=== PATIENT | male | born 1950 | race African-American/Black ===

== ENCOUNTER 2016-09-05 05:29 | Observation (INO) ==
[2016-09-05 07:05] LABS: Basophils % 0.2 % (0.0-0.8); Eosinophils # 0.1 10*3/uL (0.0-0.87); Eosinophils % 1.4 % (0.00-10.9); Hematocrit 37.9 VOL% (42.0-52.0); Hemoglobin 12.9 GM/DL (14.0-18.0); Immature Granulocytes % 0.5 %; Immature Granulocytes Absolute 0.02 #; Lymphocytes # 1.6 10*3/uL (1.4-4.0); Lymphocytes % 37.1 % (21.2-54.2); Mean Corpuscular Hemoglobin 35 PG (27-34); Mean Corpuscular Volume 103.3 FL (87-102); Mean Platelet Volume 9.4 FL (9.6-12.0); Monocytes # 0.4 10*3/uL (0.11-0.8); Monocytes % 9.3 % (1.7-12.7); Neutrophils # 2.3 10*3/uL (1.4-7.4); Neutrophils % 51.5 % (38.7-73.9); Platelet Count 150 T/CUMM (130-400); Red Blood Count 3.67 MC/CUMM (3.8-5.5); Red Cell Distribution Width 13.5 % (9.3-17.3); White Blood Count 4.4 T/CUMM (4-12)
[2016-09-05 07:15] LABS: INR 0.9; PT Patient Result 9.9 SECS; Partial Thromboplastin Time 24.1 SECS (0-40)
[2016-09-05 07:39] LABS: % Iron Saturation 53.1 % (18-50); Calcium 9.4 MG/DL (8.5-10.1); Ferritin 379.8 ng/ml (26-388); Osmolality,Calculated 282.3 MOS/KG (273-304); Potassium 4.2 MMOL/L (3.5-5.1)
--- NOTE | 2016-09-05 07:48 | Cardiology History & Physical ---
Assessment and Plan (1) Ventricular tachycardia Status: Acute Assessment and plan: 66y BM. Incessant slow VT, suggestive of LAFB origin. CAD, CMP susp ICM+TCMP, PAD, COPD, HTN, HLP. -We discussed risks/benefits of management options. We will proceed with VT ablation under general anesthesia. Informed consent obtained. -Mild macrocytic anemia, lower extremity neuropathic symptoms. Will check anemia studies Current Visit: Yes (2) CAD (coronary artery disease) Status: Chronic Current Visit: No (3) Cardiomyopathy, dilated Status: Chronic Current Visit: No (4) PVD (peripheral vascular disease) Status: Chronic Current Visit: No (5) Palpitations Status: Resolved Current Visit: No (6) Dyslipidemia Status: Chronic Current Visit: No History of Present Illness Chief complaint: Incessant VT, CMP History of present illness: Mr. Aram Birch is a 66 year old BM, followed by dr. Lacy. He was referred for EP evaluation. He had slow incessant VT/AIVR, which was minimally symptomatic. Stable morphology, RBBB/LPFB morphology. 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 PAD s/p LCIA occlusion, s/p fem-fem bypass. DVT/PE, s/p IVC filter, which was removed. LVEF was 35%, CHF NYHA II. He was initially referred for evaluation for ICD implant. Holter showed 33% VT burden. We discussed risks/benefits of management options. He ventricular tachyarrhythmia burden is significant and may have contributed to CMP, CHF. We will proceed with EPS, VT ablation, then reassess LVEF, ICD candidacy. Obtained prior records from multiple prior hospital where he was treated prior. The PAD is stable. The IVC filter was removed and no IVC occlusion was described on his recent CT. He is feeling fine. CHF symptoms stable around NYHA II. No syncope, CP. HTN, HLP. COPD, quit smoking 1 month ago. No recent fever. Coughs frequently. Home Medications Medication Instructions Recorded Confirmed Type Carvedilol [Coreg] 6.25 mg PO BID 06/20/16 09/05/16 History Cilostazol 50 mg PO BID 06/20/16 09/05/16 History Aspirin EC Tab 81 mg PO DAILY tablet 06/22/16 09/05/16 Rx Atorvastatin [Lipitor] 80 mg PO BEDTIME #30 tablet 06/22/16 09/05/16 Rx Amitriptyline HCl 10 mg PO DAILY 09/05/16 09/05/16 History Clopidogrel [Plavix] 75 mg PO DAILY 09/05/16 09/05/16 History Lisinopril 2.5 mg PO DAILY 09/05/16 09/05/16 History Pantoprazole Sodium 40 mg PO DAILY 09/05/16 09/05/16 History Allergies Allergy/AdvReac Type Severity Reaction Status Date / Time No Known Allergies Allergy Verified 06/21/16 06:17 12 point system: reviewed and no additional remarkable complaints except as stated Medical,Surgical,& Family Hx - Medical History Cardio: History of: CAD, Hypertension Neurology: No history of: Seizures Endocrine: History of: Dyslipidemia Respiratory: History of: COPD - Surgical History Cardiac Surgeries: Sugical HX of: Cardiac Catheterization - Family History Family History: Reports;: Family Hypertension, Family Stroke - Social History Smoking Status: Former smoker Frequency of Alcohol Use: Frequently Type of Drug Use: None Cardiology Physical Exam - Constitutional Vitals: Vital Signs Temp Pulse Resp BP Pulse Ox 98.0 F 65 18 115/76 98 09/05/16 07:16 09/05/16 07:16 09/05/16 07:16 09/05/16 07:16 09/05/16 07:16 Intake and Output 09/04/16 09/04/16 09/05/16 15:59 23:59 07:59 Other: Weight 51.719 kg Patient Weight 09/05/16 23:59 Weight 51.719 kg General appearance: under weight - Head Head exam: Present: normal inspection, normocephalic - Eye Eye exam: Absent: conjunctival injection Pupils: Absent: dilated - ENT ENT exam: Present: normal exam - Neck Neck exam: Present: normal inspection. Absent: thyromegaly - Respiratory Respiratory exam: Present: decreased breath sounds (on L side) - Cardiovascular Cardiovascular exam: Present: regular rate and rhythm, systolic murmur - GI/Abdominal GI/Abdominal exam: Present: normal bowel sounds - Extremities Exam Extremities exam: Present: normal inspection, normal capillary refill. Absent: edema - Back Exam Back exam: Present: normal inspection - Neurological Exam Neurological exam: Present: alert, oriented X3 - Psychiatric Psychiatric exam: Present: normal affect, normal mood - Skin Skin exam: Present: normal color, warm. Absent: cyanosis Result/EKG - Labs CBC & BMP: 09/05/16 06:50 09/05/16 06:50 Lab Results: I have reviewed the past 24 hour labs Labs: Laboratory Results - last 24 hr 09/05/16 09/05/16 09/05/16 06:50 06:50 06:50 WBC 4.4 RBC 3.67 L Hgb 12.9 L Hct 37.9 L MCV 103.3 H MCH 35 H MCHC 34.0 RDW 13.5 Plt Count 150 MPV 9.4 L Neut % (Auto) 51.5 Lymph % (Auto) 37.1 Moffat % (Auto) 9.3 Eos % (Auto) 1.4 Baso % (Auto) 0.2 Neut # (Auto) 2.3 Lymph # (Auto) 1.6 Moffat # (Auto) 0.4 Eos # (Auto) 0.1 Baso # (Auto) 0.0 Immature Gran % 0.5 Nucleated RBC % 0.0 Immature Gran # 0.02 Nucleated RBCs # 0.00 Absolute Retic 0.1 Percent Retic 1.8 H Retic Hgb Equivalent 38.9 H INR 0.9 PT Patient/Control Mix 9.9 Circ Anticoag PTT 24.1 Sodium 141 Potassium 4.2 Chloride 105 Carbon Dioxide 31 Anion Gap 9.2 BUN 21 H Creatinine 0.70 GFR Calculation 104 BUN/Creatinine Ratio 30.00 H Glucose 87 Calculated Osmolality 282.3 Calcium 9.4 Magnesium 2.0 Iron 154 TIBC 290 % Saturation 53.1 H Ferritin 379.8 - EKG EKG results: interpreted by me
[2016-09-05 07:53] LABS: Folate 9.4 NG/ML (5.4-24.0)
[2016-09-05] MEDS ORDERED: HEPARIN/NACL 0.9% 2 UNITS/ML 1,500 ML IV ONE (08:06)
[2016-09-05] MEDS ORDERED: LIDOCAINE 1% 20 ML VIAL ONE (08:07)
--- NOTE | 2016-09-05 08:29 | History and Physical Update ---
Sedation H&P Update - History and Physical H&P was reviewed, the patient examined and there: are no changes in the patients condition since last H&P was completed. - Dictation Physical: refer to H&P completed by admitting physician - Physical Exam Mental Status: alert and oriented Heart: regular rate and rhythm Lung: clear to auscultation Abdomen: within normal limits Vitals: within normal limits - Sedation Plan for Sedation: other (GA) Patient Consent: Procedure disscussed with patient and patinet has consented., Risks and benefits were discussed with patient,including infection,, bleeding, injury to surrounding structures, seizure, temporary nerve, Patient understands and accepts potential risks/benefits and agrees to ASA Class: IV Airway Assessment: Class II: Soft palate, uvula, fauces visible
[2016-09-05] MEDS ORDERED: HEPARIN 5,000 UNIT/1 ML VIAL ONE (08:54)
[2016-09-05 09:16] LABS: Apearance,Urine CLEAR (Clear); Bilirubin,Urine Negative (Negative); Blood, Urine Negative (Negative); Glucose,Urine (UA) Negative (Negative); Ketones,Urine Negative (Negative); Mucus,Urine Occasional /LPF (Occasional); Nitrite,Urine Negative (Negative); Protein,Urine Negative; Urine Color Straw (Yellow); Urine Specific Gravity 1.015 (1.001-1.035); Urine Urobilinogen < 2.0 EU/DL (0.2-1.0); WBC,Urine <1 /HPF (0-6)
[2016-09-05] MEDS ORDERED: ISOPROTERENOL 1 MG/5 ML VIAL IV ONE (09:36)
--- NOTE | 2016-09-05 10:25 | Anesthesia ---
Anesthesia Procedures - Arterial Line Consent obtained arterial line: verbal consent Time out performed arterial line: Yes Size (Gauge): 20 Technique used arterial line: direct puncture technique Post-Procedure: dry sterile dressing placed Patient tolerated procedure arterial line: well, no complications Complications art line: none Site: left, radial (pt tolerated well)
[2016-09-05] MEDS ORDERED: ACETAMINOPHEN 325 MG TABLET PO PRN (10:40)
[2016-09-05] MEDS ORDERED: MORPHINE 2 MG/1 ML SYRINGE IV PRN (10:40)
[2016-09-05] MEDS ORDERED: ONDANSETRON 4 MG/2 ML VIAL IV PRN (10:40)
[2016-09-05] MEDS ORDERED: ASPIRIN EC 325 MG TABLET PO ONE (10:40)
[2016-09-05] MEDS ORDERED: ZALEPLON 5 MG CAPSULE PO PRN (10:40)
--- NOTE | 2016-09-05 10:46 | Electrophysiology Report ---
Date of Procedure:: 09/05/16 Pre-op diagnosis: VT, ICM Post-op diagnosis: same Procedure: PROCEDURAL SUMMARY Comprehensive diagnostic EP study. No inducible sustained ventricular tachycardia under general anesthesia. Multiple, hemodynamically unstable nonsustained ventricular tachycardias. Dual AV node physiology, without inducible sustained SVT. Right iliac vein and IVC venogram. Patent IVC and right iliac vein. Successful procedure, no complications. PLAN Bed rest for 6 hours. Remove Lara catheter. Plan to proceed with a dual-chamber ICD implant due to ischemic cardiomyopathy, CHF, without fully reversible cause. The clinical arrhythmia, which is suspicious for LAFB VT, was not inducible under general anesthesia. He had significant arrhythmia burden before. Due to his comorbidities and difficult vascular access, I am not planning to repeat this procedure under minimal sedation, unless the burden increases and becomes refractory to medical management. We will try calcium channel anabelle for now, in addition to his CMP regimen. DIAGNOSES Incessant slow ventricular tachycardia/AIVR, suggestive of LAFB origin. CAD, status post WA and PCI. CHF class II. Severe PAD s/p fem-fem bypass. PROCEDURE REPORT A timeout was performed before the procedure. Anesthesia General anesthesia was provided by the anesthesia service. A radial arterial line was placed for blood pressure monitoring. Anticoagulation Iv. heparin 5000U was administered. Access The patient has history of severe PAD, known left iliac artery occlusion, femorofemoral bypass. History of DVT/PE, IVC filter and IVC filter thrombosis, status post removal. The Seldinger technique was performed utilizing a 21 gauge micropuncture needle and 0.[address] a 9 Bulgarian sheath into the right femoral vein. 10 cc of contrast was injected, to obtain a right femoral vein and IVC venogram. The vein was of small caliber, but patent, the IVC was also patent. The femorofemoral bypass graft was easily palpable and care was taken to avoid it while placing the venous sheaths. Both femoral arteries was heavily calcified on palpation. Due to his severe PAD, a transseptal access setup was planned for the LV mapping/ablation. The following sheaths and catheters were used: RFV: 9 Fr V[employer] Smarttouch bidirectional irrigated tip catheter. LFV: 9 Fr - planned access for the ICE catheter. LFV: 8 Fr -decapolar diagnostic coronary sinus catheter LFV: 6 Fr -diagnostic His catheter LFV: 5 Fr -diagnostic quad catheter for RV Electrophysiologic Study The patient had no ventricular tachycardia on admission EKG today. Baseline ECG: sinus rhythm, RR 843 ms. DC 178, QRS 88, QT 433 ms. There was no preexcitation. The ablation catheter was introduced under electroanatomical guidance. A right atrial 3D FAM was constructed using CARTO. The His and the coronary sinus was marked. The coronary sinus catheter, the diagnostic His and quad catheters were positioned using electroanatomcial guidance. AH 108 ms. HV 35 ms. AV Wb 420 ms. Anterograde conduction concentric, decremental. Programmed atrial extrastimulation showed an A-H jump of 65 ms at 600/360 ms. There were no echo beats. Anterograde AVN ERp 600/330. VA Wenckebach 650 ms. Retrograde conduction concentric, decremental. Burst and programmed atrial extrastimulation up to 1 PES did not increase sustained arrhythmia. Programmed and burst ventricular extrastimulation was used, at 550, 400 and 330 ms CL, up to 3 extrastimuli. Short bursts of nonsustained ventricular tachycardias were inducible. The clinical, fascicular VT was not inducible. A nonsustained ventricular tachycardia with cycle length of 307 ms, left bundle branch block/inferior axis morphology, transition in V5 and QRS duration 160 ms was repeatedly inducible. This was hemodynamically unstable. Iv. Isuprel was started at 5 mics. The programmed and burst ventricular extra stimulation was repeated from RVA and RVOT, still the clinical ventricular tachycardia was noninducible. Again, multiple episodes of hemodynamically unstable nonsustained ventricular tachycardias was induced, mostly with the same morphology as above. Multiple brief runs of short irregular SVT/AT were noted. During Isuprel infusion, the patient was hypotensive even during programmed extra stimulation. 12-lead EKG was checked periodically to rule out ischemia. The Isuprel was stopped. As the clinical arrhythmia was not inducible, transseptal access and mapping of the left ventricle was not pursued. End of the procedure The catheters were removed and the sheaths were pulled. Manual compression was applied until hemostasis was achieved. The patient woke up uneventfully from anesthesia. There were no complications. During recovery, the clinical arrhythmia returned, with the same fascicular appearing morphology. Isorhythmic dissociation with SR around 90 bpm. This was not symptomatic. PROCEDURE(S) 1. Comprehensive electrophysiologic evaluation including insertion and repositioning of multiple electrode catheters with induction or attempted induction of an arrhythmia with right atrial pacing and recording, right ventricular pacing and recording (when necessary), His bundle recording (when necessary) with intracardiac catheter ablation of arrhythmogenic focus; with treatment of supraventricular tachycardia by ablation of fast or slow atrioventricular pathway, accessory atrioventricular connection, cavo-tricuspid isthmus or other single atrial focus or source of atrial re-entry 2. Programmed stimulation and pacing after intravenous drug infusion 3. Intracardiac electrophysiologic three-dimensional mapping 4. Inferior vena cava and right iliac vein venogram. Anesthesia: general Surgeon / Physician: Arnold Taylor Lead Programmer: other (Marquis) Estimated blood loss: minimal Specimens: none sent Condition: stable Disposition: floor
[2016-09-05] MEDS ORDERED: LACTATED RINGERS 1,000 ML IV ONE (11:13)
[2016-09-05] MEDS ORDERED: HEPARIN/NACL 0.9% 2 UNITS/ML 500 ML IV ONE (11:13)
[2016-09-05] MEDS ORDERED: MIDAZOLAM 2 MG/2 ML VIAL ONE (11:13)
[2016-09-05] MEDS ORDERED: SEVOFLURANE 1 UNIT/15 MINUTE INH ONE (11:13)
[2016-09-05] MEDS ORDERED: fentaNYL 100 MCG/2 ML VIAL ONE (11:13)
--- NOTE | 2016-09-05 11:20 | Anesthesia ---
Anesthesia Post OP - Post Ansesthetic Evaluation Patient seen in post op: Yes Resp: within normal limits CV: within normal limits Mental: within normal limits Temp: within normal limits [id number]: within normal limits Nausea and Vomiting: within normal limits Pain: within normal limits
--- NOTE | 2016-09-05 11:50 | EKG Report ---
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
[2016-09-05] MEDS: CILOSTAZOL 50 MG TABLET PO SCH ×2 (13:45→21:22)
[2016-09-05] MEDS: LISINOPRIL 2.5 MG TABLET PO SCH (13:45)
[2016-09-05] MEDS: CLOPIDOGREL 75 MG TABLET PO SCH (13:46)
[2016-09-05] MEDS: PANTOPRAZOLE 40 MG TABLET PO SCH (13:46)
[2016-09-05] MEDS: CARVEDILOL 6.25 MG TABLET PO SCH ×2 (13:46→21:25)
[2016-09-05] MEDS: AMITRIPTYLINE 10 MG TABLET PO SCH (13:46)
[2016-09-05] MEDS: ENOXAPARIN 40 MG/0.4 ML SYRINGE SUBCUT SCH (13:46)
[2016-09-05] MEDS ORDERED: ceFAZolin 1,000 MG VIAL IRRIG ONE (13:55)
[2016-09-05] MEDS ORDERED: DILTIAZEM CD 120 MG CAPSULE PO ONE (17:56)
[2016-09-05] MEDS: ATORVASTATIN 40 MG TABLET PO SCH (21:24)
[2016-09-06] MEDS ORDERED: SODIUM CHLORIDE 0.9% 1,000 ML IV SCH (02:30)
[2016-09-06 03:55] LABS: Basophils % 0.4 % (0.0-0.8); Eosinophils % 0.8 % (0.00-10.9); Hematocrit 34.2 VOL% (42.0-52.0); Hemoglobin 11.1 GM/DL (14.0-18.0); Immature Granulocytes % 0.2 %; Immature Granulocytes Absolute 0.01 #; Lymphocytes # 1.6 10*3/uL (1.4-4.0); Lymphocytes % 29.5 % (21.2-54.2); Mean Corpuscular HGB Conc 32.5 GM/DL (32-36); Mean Corpuscular Hemoglobin 35 PG (27-34); Mean Corpuscular Volume 106.2 FL (87-102); Mean Platelet Volume 9.4 FL (9.6-12.0); Monocytes # 0.5 10*3/uL (0.11-0.8); Monocytes % 9.5 % (1.7-12.7); Neutrophils # 3.2 10*3/uL (1.4-7.4); Neutrophils % 59.6 % (38.7-73.9); Platelet Count 129 T/CUMM (130-400); Red Blood Count 3.22 MC/CUMM (3.8-5.5); Red Cell Distribution Width 13.8 % (9.3-17.3); White Blood Count 5.3 T/CUMM (4-12)
[2016-09-06 04:21] LABS: Calcium 8.6 MG/DL (8.5-10.1); Magnesium 1.8 MG/DL (1.8-2.4); Osmolality,Calculated 281.1 MOS/KG (273-304); Potassium 3.3 MMOL/L (3.5-5.1)
[2016-09-06 04:23] LABS: Calcium 8.7 MG/DL (8.5-10.1); Potassium 3.3 MMOL/L (3.5-5.1)
[2016-09-06] MEDS ORDERED: POTASSIUM CHLORIDE RIDER 10 MEQ in PREMIX 1 EACH IV PRN (06:19)
[2016-09-06] MEDS ORDERED: MAGNESIUM SULF RIDER 4 GM in PREMIX 1 EACH IV PRN (06:19)
[2016-09-06] MEDS ORDERED: MAGNESIUM SULF RIDER 2 GM in PREMIX 1 EACH IV PRN (06:19)
[2016-09-06] MEDS ORDERED: LIDOCAINE 1% 20 ML VIAL ONE (07:43)
[2016-09-06] MEDS ORDERED: ceFAZolin 1,000 MG VIAL ONE (07:43)
[2016-09-06] MEDS ORDERED: HEPARIN/NACL 0.9% 2 UNITS/ML 500 ML IV ONE (07:45)
[2016-09-06] MEDS ORDERED: MIDAZOLAM 2 MG/2 ML VIAL ONE ×2 (07:55→08:53)
[2016-09-06] MEDS ORDERED: fentaNYL 100 MCG/2 ML VIAL ONE ×2 (07:57→08:53)
--- NOTE | 2016-09-06 08:03 | History and Physical Update ---
Sedation H&P Update - History and Physical H&P was reviewed, the patient examined and there: are no changes in the patients condition since last H&P was completed. - Dictation Physical: refer to H&P completed by admitting physician - Physical Exam Mental Status: alert and oriented Heart: regular rate and rhythm Lung: clear to auscultation Abdomen: within normal limits Vitals: within normal limits - Sedation Plan for Sedation: moderate Patient Consent: Procedure disscussed with patient and patinet has consented., Risks and benefits were discussed with patient,including infection,, bleeding, injury to surrounding structures, seizure, temporary nerve, Patient understands and accepts potential risks/benefits and agrees to ASA Class: III Airway Assessment: Class II: Soft palate, uvula, fauces visible
[2016-09-06] MEDS ORDERED: TISSUE ADHESIVE 1 EACH APPLICATOR TOP ONE (08:47)
--- NOTE | 2016-09-06 09:20 | Cardiac Defibrillator ---
- Preoperative diagnosis Date of Procedure:: 09/06/16 Preop Diagnosis: ischemic dilated cardiomyopathy, document prior IA, NYHA class II and III heart failure, and measured LVEF less than or equal to 35% Post-op diagnosis: same Procedure: PROCEDURE SUMMARY DDD ICD implant from left axillary vein access. PLAN Bed rest for 4 hours. Routine post ICD implant site care and activity restrictions. Do not remove pressure dressing until AM. Portable CXR, EKG stat. CXR PA/Lat, device interrogation in AM. Ancef 1g iv. q8h x2. PROCEDURE Informed consent was obtained and a timeout was performed prior to the procedure. The patient was continuously monitored by ECG, pulse oxymetry and NIBP. 1g iv. Ancef was administered prior to the procedure for antibiotic prophylaxis. Moderate conscious sedation was initiated and maintained for 65 minutes with iv. Versed and Fentanyl. The left pectoral area was meticulously prepared with ChloroPrep surgical scrub. Sterile draping was applied and Ioban was used to cover the operation site. The image intensifier was draped with a sterile bag and positioned over the patient's chest. A left subclavian venogram was obtained with 10 cc. iv contrast. The left axillary and subclavian veins and the SVC were patent. After infiltration with 1% lidocaine, an incision was made in the left infraclavicular area, parallel to the deltopectoral groove. The incision was carried down to the level of the pectoral fascia. A subcutaneous pocket was then created with electrocautery and blunt dissection. Hemostasis was then achieved with electrocautery. A micropuncture needle was used to access the left axillary vein under fluoroscopic guidance. The microfilament was used to introduce the micropuncture sheath, which the was used to introduce and advance a long hydrophylic guidewire into the inferior vena cava. A 10.5 Fr sheath was introduced over the guidewire. The dilator was removed. The right ventricular lead was introduced through the sheath. The sheath was then peeled away. The curved stylet was used to move the lead into the right ventricular outflow tract. The stylet was then replaced with a straight stylet and the lead was moved into a stable position in the right ventricular apex. Adequate sensing and pacing threshold was confirmed. The active fixation mechanism was then deployed. Stable signal and pacing threshold was noted, with decrease in pacing impedance. No extracardiac stimulation was noted with high output pacing. The lead was then anchored to the subcutaneous tissue with 2-0 nonabsorbable suture, using the anchoring sleeve near the point of entry to the vein. Another 9 Fr sheath was introduced over the retained guidewire. The dilator was removed. The right atrial pacemaker lead was introduced through the sheath. The sheath was then peeled away. A straight stylet was used to move the lead into the right atrium. The stylet was then replaced with a curved J stylet and the lead was moved into a stable position in the right atrial appendage. Adequate sensing and pacing threshold was confirmed. The active fixation mechanism was then deployed. Stable signal and pacing threshold was noted, with decrease in pacing impedance. No extracardiac stimulation was noted with high output pacing. The lead was then anchored to the subcutaneous tissue with 2-0 nonabsorbable suture, using the anchoring sleeve near the point of entry to the vein. The retained guidewire was removed. The ICD generator was attached to the leads and sealed in the prescribed manner. The wound was flushed with Ancef. The generator was placed into the pocket and tied to the pectoral fascia using 2-0 nonabsorbable suture. Stable lead positions were confirmed with fluoroscopy. The wound was closed using a double layer of 2-0 absorbable Vicryl sutures, followed by a subcuticular running suture with 4-0 Monocryl, then Exofin. A sterile, then a pressure dressing was applied. The device was then interrogated and programmed as detailed below. Device Type SN Location Medtronic Evera DR DDD ICD [id number] Left infraclavicular Lead Position Type SN P/R Threshold Impedance RA RA appendage Medtronic 5076-52 [id number] 1.6 mV 2.2 V @ 0.5 ms 914 Ohm RV RV apex Medtronic 4905S67 [id number] 7.8 mV 0.8 V @ 0.5 ms 681 Ohm The system is MRI conditional. Settings VF @300 ms MVPR 60/130 Anesthesia: moderate conscious sedation Surgeon / Physician: Arnold Taylor Estimated blood loss: minimal Specimens: none sent Condition: stable Disposition: floor - Medications / Follow-up
--- NOTE | 2016-09-06 10:03 | XRay Report ---
XR chest 1V portable Indication: Lead placement Comparison: 10 June 2016 Findings: The heart and mediastinum are normal in size and configuration. Pacemaker device is unchanged in position. The pulmonary vascularity is normal in caliber. No lung infiltrates, effusions, pneumothorax or other abnormality is demonstrated. Impression: No acute cardiopulmonary disease. PROCEDURE INTERPRETED AT [facility] DEPARTMENT OF RADIOLOGY Final Report Signed by: Dr. Jose Hand
--- NOTE | 2016-09-06 10:08 | EKG Report ---
Stationary ECG Study [facility] Test Date: 09/06/2016 10:08:02 AM Pat Name: RAYSA PEDRO Department: Room: 275 Gender: M Compliance Spec: RUTH ANN : 1950 Requested by: Arnold Taylor Order Number: [id number] Reading MD: ADRIAN HUMPHREY Intervals [place] Rate: 59 P: 171 OR: 281 QRS: 91 QRSD: 91 T: 105 QT: 454 QTc: 454 Interpretive Statements ELECTRONIC ATRIAL PACEMAKER BORDERLINE RIGHT AXIS DEVIATION MINIMAL ST DEPRESSION POSSIBLE SEPTAL MYOCARDIAL INFARCTION Electronically Signed On 09-06-16 11:59:12 CDT by ADRIAN HUMPHREY [email or web address]
[2016-09-06] MEDS: CARVEDILOL 6.25 MG TABLET PO SCH (11:01)
[2016-09-06] MEDS: LISINOPRIL 2.5 MG TABLET PO SCH (11:01)
[2016-09-06] MEDS: DILTIAZEM CD 120 MG CAPSULE PO SCH (11:21)
[2016-09-06] MEDS: AMITRIPTYLINE 10 MG TABLET PO SCH (11:21)
[2016-09-06] MEDS: CLOPIDOGREL 75 MG TABLET PO SCH (11:21)
[2016-09-06] MEDS: CARVEDILOL 3.125 MG TABLET PO SCH ×2 (11:22→21:50)
[2016-09-06] MEDS: ENOXAPARIN 40 MG/0.4 ML SYRINGE SUBCUT SCH (11:22)
[2016-09-06] MEDS: PANTOPRAZOLE 40 MG TABLET PO SCH (11:24)
[2016-09-06] MEDS: CILOSTAZOL 50 MG TABLET PO SCH ×2 (11:24→22:00)
[2016-09-06] MEDS: ASPIRIN EC 81 MG TABLET PO SCH (11:27)
[2016-09-06] MEDS: oxyCODONE/ACETAMINOPHEN 5-325 MG TABLET PO PRN (14:11)
[2016-09-06] MEDS ORDERED: POTASSIUM CHLORIDE 20 MEQ TABLET PO ONE (17:46)
[2016-09-06] MEDS: ATORVASTATIN 40 MG TABLET PO SCH (21:50)
[2016-09-07] MEDS: oxyCODONE/ACETAMINOPHEN 5-325 MG TABLET PO PRN (01:28)
[2016-09-07 02:46] LABS: Basophils % 0.2 % (0.0-0.8); Eosinophils % 0.9 % (0.00-10.9); Hematocrit 30.6 VOL% (42.0-52.0); Hemoglobin 10.2 GM/DL (14.0-18.0); Immature Granulocytes % 0.2 %; Immature Granulocytes Absolute 0.01 #; Lymphocytes # 1.1 10*3/uL (1.4-4.0); Lymphocytes % 23.1 % (21.2-54.2); Mean Corpuscular HGB Conc 33.3 GM/DL (32-36); Mean Corpuscular Hemoglobin 35 PG (27-34); Mean Corpuscular Volume 103.7 FL (87-102); Mean Platelet Volume 9.4 FL (9.6-12.0); Monocytes # 0.4 10*3/uL (0.11-0.8); Monocytes % 9.2 % (1.7-12.7); Neutrophils % 66.4 % (38.7-73.9); Platelet Count 108 T/CUMM (130-400); Red Blood Count 2.95 MC/CUMM (3.8-5.5); Red Cell Distribution Width 13.6 % (9.3-17.3); White Blood Count 4.6 T/CUMM (4-12)
[2016-09-07 03:15] LABS: Calcium 8.8 MG/DL (8.5-10.1); Magnesium 1.8 MG/DL (1.8-2.4); Osmolality,Calculated 278.4 MOS/KG (273-304); Potassium 3.6 MMOL/L (3.5-5.1)
[2016-09-07] MEDS ORDERED: POTASSIUM CHLORIDE 20 MEQ TABLET PO ONE (07:23)
--- NOTE | 2016-09-07 07:38 | XRay Report ---
Exam: Chest 2 views Date: September 07, 2016 at 6:31 AM Comparison: Chest one view portable September 06, 2016 Reason: Lead placement Findings: The cardiac silhouette is normal in size, but a cardiac pacing device is in place. The lungs are hyperexpanded, which can be seen in COPD. No focal consolidation, pneumothorax or pleural effusion is identified. No acute osseous process is seen. There is surgical fusion of the cervical spine. Impression: No acute pulmonary process is identified. The lungs are hyperexpanded, which can be seen in COPD. PROCEDURE INTERPRETED AT [facility] DEPARTMENT OF RADIOLOGY Final Report Signed by: Dr. Sendy Ruiz
[2016-09-07 07:39] VITALS: BP 118/65
[2016-09-07] MEDS: CILOSTAZOL 50 MG TABLET PO SCH (09:59)
[2016-09-07] MEDS: ASPIRIN EC 81 MG TABLET PO SCH (09:59)
[2016-09-07] MEDS: CARVEDILOL 3.125 MG TABLET PO SCH (10:00)
[2016-09-07] MEDS: DILTIAZEM CD 120 MG CAPSULE PO SCH (10:00)
[2016-09-07] MEDS: PANTOPRAZOLE 40 MG TABLET PO SCH (10:00)
[2016-09-07] MEDS: AMITRIPTYLINE 10 MG TABLET PO SCH (10:00)
--- NOTE | 2016-09-07 10:00 | Discharge Summary ---
Hospital Course - Hospital Course Hospital Course: Mr. Chiu is a 66y BM, followed by dr. Lacy. ICM, CHF NYHA II, PAD, slow incessant fascicular VT/ h/o DVT/PE, IVC fiter placement, thrombosis and retrieval, LCIA occlusion, fem-fem bypass. He was admitted for EPS/ablation. General anesthesia was used due to anticipated difficult vascular access. IVC venogram showed patent IVC. The fascicular VT was not inducible under GA. Multiple hemodynamically unstable NSVTs were inducible. He had recurrence of the fascicular VT/AIVR, after discontinuation of the general anesthesia. Cardizem was added. This provided good rhythm control of the fascicular VT, but caused sinus bradycardia. A DDD ICD implant was then pursued due to ICM, CHF, bradycardia. Successful defibrillator testing was performed. Chest x-ray and device interrogation showed a normal lead positions and parameters. Labs remained at his baseline. He also had a history of lower extremity numbness, microcytosis. Anemia studies showed high iron saturation, with normal ferritin levels and B12 and folic acid level in normal range. Vitamin supplementation was started. -He will be discharged home, follow-up with Dr. Taylor in 1 week. -Post ICD implant and post EP study activity limitations and implant site care were discussed. -I will pursue medical management with calcium channel anabelle for the fascicular VT. Good response so far. The arrhythmia was not inducible under general anesthesia. Given his severe PAD, only transseptal access to the left ventricle is feasible. If the arrhythmia is refractory to medical management, redo EP study under minimal conscious sedation can be attempted. Diagnosis - Discharge Diagnosis (1) Ventricular tachycardia Status: Acute (2) CAD (coronary artery disease) Status: Chronic (3) Cardiomyopathy, dilated Status: Chronic (4) PVD (peripheral vascular disease) Status: Chronic (5) Palpitations Status: Resolved (6) Dyslipidemia Status: Chronic Discharge Plan - Discharge Data Disposition: Disch To Home/Self Care Condition at Discharge: Stable Discharge Diet: advance to your usual diet Activity: other (Wear sling all time for 1 week. Keep implant site dry for 1 week. May remove groin dressings today. No heavy lifting for 1 week.) Hygiene: keep area(s) dry Weight Bearing at Discharge: full weight bearing Driving: not until seen by doctor Contact your physician if you experience:: fever over 101, Difficulty voiding, Redness or swelling, Nausea/Vomiting, Shortness of breath, Bleeding, pain uncontrolled by pain medications - Discharge Medications New oxyCODONE/ACETAMINOPHEN 5-325 [Percocet 5-325] 1 tablet PO Q4H PRN #10 tablet PRN Reason: Pain Moderate (4-7) Diltiazem Cd Cap [Cardizem CD] 120 mg PO DAILY #90 capsule Continue Cilostazol 50 mg PO BID Aspirin EC Tab 81 mg PO DAILY tablet Atorvastatin [Lipitor] 80 mg PO BEDTIME #30 tablet Amitriptyline HCl 10 mg PO DAILY Clopidogrel [Plavix] 75 mg PO DAILY Lisinopril 2.5 mg PO DAILY Carvedilol [Coreg] 6.25 mg PO BID Pantoprazole Sodium 40 mg PO DAILY - Follow Up or Referral Follow Up: Arnold Taylor MD [Physician] - 1 Week - Forms/Instructions Exam - Constitutional Vitals: Period Temp Pulse Resp BP Sys/Wise Pulse Ox Last 24 Hr 97.7 F-99.6 F 60-77 16-20 111-130/59-75 93-100 General appearance: under weight - Head Head exam: Present: normal inspection - Eye Eye exam: Absent: conjunctival injection Pupils: Absent: dilated - ENT ENT exam: Present: normal external ear exam - Neck Neck exam: Present: normal inspection - Respiratory Respiratory exam: Present: clear to auscultation bilaterally - Cardiovascular Cardiovascular exam: Present: regular rate and rhythm, systolic murmur - GI/Abdominal GI/Abdominal exam: Present: normal bowel sounds - Extremities Exam Extremities exam: Present: normal inspection, normal capillary refill. Absent: edema - Back Exam Back exam: Present: normal inspection - Neurological Exam Neurological exam: Present: alert, oriented X3 - Psychiatric Psychiatric exam: Present: normal affect, normal mood - Skin Skin exam: Present: normal color, warm. Absent: cyanosis Discharge Results Procedures and tests throughout hospitalization: Pending Orders 09/04/16 20:40 Occult Blood, Stool Routine 09/05/16 06:50 Transferrin IN AM Labs on day of discharge: Labs from last 24 hours 09/07/16 09/07/16 02:20 02:20 WBC 4.6 RBC 2.95 L Hgb 10.2 L Hct 30.6 L MCV 103.7 H MCH 35 H MCHC 33.3 RDW 13.6 Plt Count 108 L MPV 9.4 L Neut % (Auto) 66.4 Lymph % (Auto) 23.1 [place] % (Auto) 9.2 Eos % (Auto) 0.9 Baso % (Auto) 0.2 Neut # (Auto) 3.0 Lymph # (Auto) 1.1 L [place] # (Auto) 0.4 Eos # (Auto) 0.0 Baso # (Auto) 0.0 Immature Gran % 0.2 Nucleated RBC % 0.0 Immature Gran # 0.01 Nucleated RBCs # 0.00 Sodium 140 Potassium 3.6 Chloride 103 Carbon Dioxide 29 Anion Gap 11.6 BUN 8 Creatinine 0.60 L GFR Calculation 111 BUN/Creatinine Ratio 13.00 Glucose 131 H Calculated Osmolality 278.4 Calcium 8.8 Magnesium 1.8 - Imaging and Cardiology Cardiology Procedure: image reviewed by me, report reviewed by me DS: Provider Date of admission: 09/05/2016 Consults: 09/05/16 13:32 Consult to Pharmacy [CONS] Routine Reason for Pharmacy Consult: Adjust Meds Renal Funct Discharging clinician: Arnold Taylor MD
[2016-09-07] MEDS: CLOPIDOGREL 75 MG TABLET PO SCH (10:02)
== END 2016-09-07 12:06 | disposition home or self-care (01) ==
LOC: N.CL 05:29 → N.TELES 05:29 → N.CL 05:58 → N.TELES 13:15
PROVIDERS: ADMIT Internal Medicine Clinical Cardiac Electrophysiology; ATTEND Internal Medicine Clinical Cardiac Electrophysiology
PROC: CLDCICD (2016-09-06 08:15)

== ENCOUNTER 2019-07-05 06:34 | Inpatient (IN) ==
[2019-07-05] MEDS ORDERED: VANCOMYCIN 500 MG VIAL ONE (08:18)
[2019-07-05] MEDS ORDERED: VANCOMYCIN INJ 1,000 MG in SODIUM CHLORIDE 0.9% 250 ML IV ONE (08:46)
[2019-07-05] MEDS ORDERED: SODIUM CHLORIDE 0.9% 1,000 ML IV PRN (10:07)
[2019-07-05] MEDS ORDERED: BISACODYL 5 MG TABLET PO PRN (10:09)
[2019-07-05] MEDS ORDERED: HYDROmorphone 2 MG/1 ML VIAL IV PRN (10:09)
[2019-07-05] MEDS ORDERED: ONDANSETRON 4 MG/2 ML VIAL IV PRN (10:09)
[2019-07-05] MEDS ORDERED: NITROGLYCERIN SL 0.4 MG TABLET SL PRN (10:12)
[2019-07-05] MEDS ORDERED: BISACODYL 10 MG SUPP RECTAL PRN (10:12)
[2019-07-05] MEDS ORDERED: ONDANSETRON 4 MG TABLET PO PRN (10:12)
[2019-07-05] MEDS ORDERED: MAGNESIUM HYDROXIDE SUSP 30 ML UDCUP PO PRN (10:12)
[2019-07-05] MEDS ORDERED: ALBUTEROL 2.5 MG/3 ML NEB RESP TX PRN (10:12)
[2019-07-05] MEDS ORDERED: ACETAMINOPHEN 325 MG TABLET PO PRN (10:12)
[2019-07-05] MEDS ORDERED: propofoL 200 MG/20 ML VIAL IV ONE (10:27)
[2019-07-05] MEDS ORDERED: MIDAZOLAM 2 MG/2 ML VIAL ONE (10:27)
[2019-07-05] MEDS ORDERED: SEVOFLURANE 1 UNIT/15 MINUTE INH ONE (10:27)
[2019-07-05] MEDS ORDERED: ETOMIDATE 40 MG/20 ML VIAL IV ONE (10:27)
[2019-07-05] MEDS ORDERED: fentaNYL 100 MCG/2 ML VIAL ONE (10:27)
[2019-07-05] MEDS ORDERED: ONDANSETRON 4 MG/2 ML VIAL ONE (10:27)
[2019-07-05] MEDS ORDERED: LIDOCAINE 2% 5 ML VIAL ONE (10:27)
[2019-07-05] MEDS ORDERED: ACETAMINOPHEN 1,000 MG/100 ML VIAL IV ONE (10:27)
[2019-07-05] MEDS ORDERED: PHENYLEPHRINE 1 MG/10 ML SYRINGE IV ONE (10:28)
[2019-07-05] MEDS: LACTATED RINGERS 1,000 ML IV SCH (12:01)
[2019-07-05 19:49] LABS: Hematocrit 34.4 VOL% (42.0-52.0); Hemoglobin 10.8 GM/DL (14.0-18.0)
[2019-07-05] MEDS: carvediloL 3.125 MG TABLET PO SCH (20:48)
[2019-07-05] MEDS: ATORVASTATIN 20 MG TABLET PO SCH (20:48)
[2019-07-05] MEDS: DOCUSATE SODIUM 100 MG CAPSULE PO SCH (20:48)
[2019-07-05] MEDS: MELATONIN 3 MG TABLET PO PRN (20:54)
[2019-07-06] MEDS: ENOXAPARIN 30 MG/0.3 ML SYRINGE SUBCUT SCH (06:26)
[2019-07-06 06:27] LABS: Basophils % 0.3 % (0.0-0.8); Eosinophils # 0.1 10*3/uL (0.0-0.87); Eosinophils % 0.9 % (0.00-10.9); Hemoglobin 10.7 GM/DL (14.0-18.0); Immature Granulocytes % 0.8 %; Immature Granulocytes Absolute 0.11 #; Lymphocytes # 1.9 10*3/uL (1.4-4.0); Lymphocytes % 13.4 % (21.2-54.2); Mean Corpuscular HGB Conc 31.5 GM/DL (32-36); Mean Corpuscular Volume 95.8 FL (87-102); Mean Platelet Volume 8.8 FL (9.6-12.0); Monocytes % 9.2 % (1.7-12.7); Neutrophils % 75.4 % (38.7-73.9); Platelet Count 254 T/CUMM (130-400); Red Blood Count 3.55 MC/CUMM (3.8-5.5); Red Cell Distribution Width 16.8 % (9.3-17.3); White Blood Count 13.8 T/CUMM (4-12)
[2019-07-06 07:03] LABS: Calcium 8.9 MG/DL (8.5-10.1); Osmolality,Calculated 268.1 MOS/KG (273-304)
[2019-07-06] MEDS: carvediloL 3.125 MG TABLET PO SCH ×2 (08:20→21:01)
[2019-07-06] MEDS: THIAMINE 100 MG TABLET PO SCH (08:20)
[2019-07-06] MEDS: ASPIRIN EC 81 MG TABLET PO SCH (08:20)
[2019-07-06] MEDS: FOLIC ACID 1 MG TABLET PO SCH (08:20)
[2019-07-06] MEDS: PANTOPRAZOLE 40 MG TABLET PO SCH (08:20)
[2019-07-06] MEDS: LACTATED RINGERS 1,000 ML IV SCH (08:20)
[2019-07-06] MEDS: DOCUSATE SODIUM 100 MG CAPSULE PO SCH ×2 (08:20→21:01)
[2019-07-06] MEDS: POLYETHYLENE GLYCOL POWDER 17 GM PACK PO SCH (08:20)
[2019-07-06] MEDS: MELATONIN 3 MG TABLET PO PRN (21:01)
[2019-07-06] MEDS: ATORVASTATIN 20 MG TABLET PO SCH (21:01)
[2019-07-07] MEDS: ENOXAPARIN 30 MG/0.3 ML SYRINGE SUBCUT SCH (06:15)
[2019-07-07] MEDS: ASPIRIN EC 81 MG TABLET PO SCH (08:12)
[2019-07-07] MEDS: FOLIC ACID 1 MG TABLET PO SCH (08:12)
[2019-07-07] MEDS: PANTOPRAZOLE 40 MG TABLET PO SCH (08:13)
[2019-07-07] MEDS: POLYETHYLENE GLYCOL POWDER 17 GM PACK PO SCH (08:13)
[2019-07-07] MEDS: DOCUSATE SODIUM 100 MG CAPSULE PO SCH ×2 (08:13→20:59)
[2019-07-07] MEDS: carvediloL 3.125 MG TABLET PO SCH ×2 (08:13→20:59)
[2019-07-07] MEDS: THIAMINE 100 MG TABLET PO SCH (08:13)
[2019-07-07] MEDS: ATORVASTATIN 20 MG TABLET PO SCH (20:59)
[2019-07-07] MEDS: MELATONIN 3 MG TABLET PO PRN (20:59)
[2019-07-08] MEDS: ENOXAPARIN 30 MG/0.3 ML SYRINGE SUBCUT SCH (05:15)
[2019-07-08] MEDS: ASPIRIN EC 81 MG TABLET PO SCH (09:19)
[2019-07-08] MEDS: DOCUSATE SODIUM 100 MG CAPSULE PO SCH ×2 (09:20→20:23)
[2019-07-08] MEDS: carvediloL 3.125 MG TABLET PO SCH ×2 (09:20→20:23)
[2019-07-08] MEDS: FOLIC ACID 1 MG TABLET PO SCH (09:20)
[2019-07-08] MEDS: PANTOPRAZOLE 40 MG TABLET PO SCH (09:21)
[2019-07-08] MEDS: POLYETHYLENE GLYCOL POWDER 17 GM PACK PO SCH (09:21)
[2019-07-08] MEDS: THIAMINE 100 MG TABLET PO SCH (09:21)
[2019-07-08] MEDS: ATORVASTATIN 20 MG TABLET PO SCH (20:23)
[2019-07-08] MEDS: MELATONIN 3 MG TABLET PO PRN (20:23)
[2019-07-09] MEDS: ENOXAPARIN 30 MG/0.3 ML SYRINGE SUBCUT SCH (05:42)
[2019-07-09] MEDS: POLYETHYLENE GLYCOL POWDER 17 GM PACK PO SCH (08:42)
[2019-07-09] MEDS: FOLIC ACID 1 MG TABLET PO SCH (08:42)
[2019-07-09] MEDS: THIAMINE 100 MG TABLET PO SCH (08:42)
[2019-07-09] MEDS: DOCUSATE SODIUM 100 MG CAPSULE PO SCH ×2 (08:42→20:45)
[2019-07-09] MEDS: PANTOPRAZOLE 40 MG TABLET PO SCH (08:42)
[2019-07-09] MEDS: carvediloL 3.125 MG TABLET PO SCH ×2 (08:42→20:46)
[2019-07-09] MEDS: ASPIRIN EC 81 MG TABLET PO SCH (08:42)
[2019-07-09] MEDS: ATORVASTATIN 20 MG TABLET PO SCH (20:46)
[2019-07-10] MEDS: ENOXAPARIN 30 MG/0.3 ML SYRINGE SUBCUT SCH (05:24)
[2019-07-10] MEDS: carvediloL 3.125 MG TABLET PO SCH ×2 (09:04→20:15)
[2019-07-10] MEDS: DOCUSATE SODIUM 100 MG CAPSULE PO SCH ×2 (09:04→20:15)
[2019-07-10] MEDS: THIAMINE 100 MG TABLET PO SCH (09:04)
[2019-07-10] MEDS: ASPIRIN EC 81 MG TABLET PO SCH (09:04)
[2019-07-10] MEDS: FOLIC ACID 1 MG TABLET PO SCH (09:04)
[2019-07-10] MEDS: PANTOPRAZOLE 40 MG TABLET PO SCH (09:05)
[2019-07-10] MEDS: POLYETHYLENE GLYCOL POWDER 17 GM PACK PO SCH (09:07)
[2019-07-10] MEDS: ATORVASTATIN 20 MG TABLET PO SCH (20:15)
[2019-07-11] MEDS: ENOXAPARIN 30 MG/0.3 ML SYRINGE SUBCUT SCH (05:57)
[2019-07-11] MEDS: THIAMINE 100 MG TABLET PO SCH (08:35)
[2019-07-11] MEDS: carvediloL 3.125 MG TABLET PO SCH (08:35)
[2019-07-11] MEDS: FOLIC ACID 1 MG TABLET PO SCH (08:35)
[2019-07-11] MEDS: ASPIRIN EC 81 MG TABLET PO SCH (08:35)
[2019-07-11] MEDS: PANTOPRAZOLE 40 MG TABLET PO SCH (08:35)
[2019-07-11] MEDS: DOCUSATE SODIUM 100 MG CAPSULE PO SCH (08:35)
[2019-07-11] MEDS: POLYETHYLENE GLYCOL POWDER 17 GM PACK PO SCH (08:36)
[2019-07-11 16:35] VITALS: BP 127/61
== END 2019-07-11 16:30 | DRG 240 ==
LOC: N.SDSINP 06:34 → N.3E 10:48
PROVIDERS: ADMIT Surgery; ATTEND Surgery